=== PATIENT | female | born 1970 | race Hispanic/Latino ===

== ENCOUNTER 2017-11-03 07:27 | Emergency (ER) | payer OTHER, BC ==
[~2017-11-03] VITALS: Ht 167.6 cm; Wt 81.6 kg
[2017-11-03] MEDS: KETOROLAC TROMETHAMINE 60 MG/2 ML VIAL IM ONE (07:55)
--- NOTE | 2017-11-03 08:59 | Diagnostic Imaging Report ---
PROCEDURE:X-RAY RIGHT SHOULDER, COMPLETE COMPARISON:None. INDICATIONS:FALL FINDINGS: There are no fractures, dislocations, lytic or blastic lesions. The bones are well-mineralized. The soft-tissues are unremarkable. CONCLUSION: Normal right shoulder radiograph. Cesar Lopez D.O. Dictated by: Cesar Lopez D.O. on 11/03/2017 at 9:06 Electronically approved by: Cesar Lopez D.O. on 11/03/2017 at 9:06
--- NOTE | 2017-11-03 09:02 | Diagnostic Imaging Report ---
PROCEDURE:X-RAY RIGHT KNEE, THREE OR MORE VIEWS COMPARISON:None. INDICATIONS:FALL FINDINGS: The bones are well-mineralized. There are no fractures, subluxations, lytic or blastic lesions. Artifactual densities are noted within the soft tissues of the proximal medial calf not substantiated as persistent on all images. There is no evidence of a joint effusion. CONCLUSION: No acute bony abnormality. Cesar Lopez D.O. Dictated by: Cesar Lopez D.O. on 11/03/2017 at 9:09 Electronically approved by: Cesar Lopez D.O. on 11/03/2017 at 9:09
[2017-11-03] MEDS ORDERED: ULTRAM50 MG PO (09:24)
[2017-11-03] MEDS ORDERED: ONDANSETRON HCL 4 MG ORAL DISINTEGRATING TAB PO ONE (09:45)
[2017-11-03] MEDS ORDERED: HYDROCODONE/APAP 10MG-325MG TAB PO ONE (09:45)
== END 2017-11-03 09:56 | disposition home or self-care (01) ==
LOC: ER 07:27
DX: S80.01XA Contusion of right knee, initial encounter (principal); S83.411A Sprain of medial collateral ligament of right knee, initial encounter; S83.421A Sprain of lateral collateral ligament of right knee, initial encounter; W11.XXXA Fall on and from ladder, initial encounter
CPT/HCPCS: 73030; 73562; 99282; J1885

== ENCOUNTER 2019-08-07 12:31 | Emergency (ER) | payer OTHER ==
[~2019-08-07] VITALS: Ht 165.1 cm; Wt 83.9 kg
[~2019-08-07 12:31] MED LIST: ULTRAM50 MG PO
[2019-08-07] MEDS ORDERED: SODIUM CHLORIDE 0.9% 1000ML 1,000 ML IV STA (12:38)
[2019-08-07] MEDS ORDERED: ACETAMINOPHEN 325 MG TAB PO ONE (12:45)
[2019-08-07] MEDS ORDERED: CEFTRIAXONE SOD 1 GM VIAL ONE ×2 (13:04→15:29)
[2019-08-07] MEDS ORDERED: AZITHROMYCIN 500MG/NS 250 ML 250 ML IV ONE (13:10)
[2019-08-07 13:31] LABS: BASOPHILS % 0.4 % (0.0-1.0); EOSINOPHILS % 0.3 % (0.0-6.0); HEMATOCRIT 46.1 % (34.2-44.1); HEMOGLOBIN 14.9 g/dL (12.0-16.0); LYMPHOCYTES # (AUTO) 0.8 (1.0-3.2); LYMPHOCYTES % 10.9 % (18.0-39.1); MEAN CORPUSCULAR HEMOGLOBIN 29.7 pg (28-32); MEAN CORPUSCULAR HGB CONC 32.3 g/dL (31-35); MONOCYTES # (AUTO) 0.4 (0.2-0.8); NEUTROPHILS # (AUTO) 6.3 (2.1-6.9); NEUTROPHILS % 83.1 % (38.7-80.0); PLATELET COUNT 228 x10e3/uL (140-360); RED BLOOD COUNT 5.01 x10e6/uL (3.6-5.1); RED CELL DISTRIBUTION WIDTH 13.5 % (11.7-14.4)
--- NOTE | 2019-08-07 13:33 | NUR ---
PT STATES SHE CANT GIVE URINE SPECIMEN. PT GIVEN PO WATER AND IVF'S RUNNING. CUP AT BEDSIDE FOR URINE SAMPLE.
[2019-08-07 13:40] LABS: INR 0.79; PROTHROMBIN TIME 11.4 seconds (11.9-14.5)
[2019-08-07 13:45] LABS: ALANINE AMINOTRANSFERASE 21 IU/L (0-55); ALBUMIN 4.1 g/dL (3.5-5.0); ALKALINE PHOSPHATASE 93 IU/L (40-150); ANION GAP 15.7 mmol/L (8-16); BLOOD UREA NITROGEN 9 mg/dL (7-26); BUN/CREATININE RATIO 10 (6-25); CALCIUM 9.7 mg/dL (8.4-10.2); CARBON DIOXIDE 24 mmol/L (22-29); CHLORIDE 103 mmol/L (98-107); CREATINE KINASE 43 IU/L (29-168); CREATININE, SERUM 0.88 mg/dL (0.57-1.11); EST GLOMERULAR FILTRATION RATE > 60 ML/MIN (60-); GLUCOSE 105 mg/dL (74-118); MAGNESIUM 1.7 MG/DL (1.3-2.1); POTASSIUM 3.7 mmol/L (3.5-5.1); SODIUM 139 mmol/L (136-145)
[2019-08-07] MEDS ORDERED: CEFTRIAXONE SOD 2 GM/NS 100 ML 100 ML IV ONE (14:00)
--- NOTE | 2019-08-07 15:29 | Emergency Department Note ---
History of Present Illnes History of Present Illness Chief Complaint: COVID PUI History of Present Illness This is a 49 year old female HERE FOR COUGH, CONGESTION, CHILLS, MUSCLE ACHES THAT WORSENED YESTERDAY. REPORTS THAT SHE HAS SEASONAL ALLERGIES. DAUGHTER WAS COVID POSITIVE LAST WEEK AND THEY HAD DINNER TOGETHER. 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 Any updates have been documented here. Past Medical History Recent Fever: No Clinical Suspicion of Infectio: No New/Unexplained Change in Ment: No Past Medical History: None Other Medical History: SEASONAL ALLERGIES Past Surgical History: Other Surgery: KNEE SURGERIES ROTOR CUFF REPAIR Social History Smoking Cessation: Former smoker Counseling Performed: No Alcohol Use: Occasional TB Exposure/Symptoms: No Physically hurt or threatened: No Other Last Tetanus: UNK Last Flu: N Last Pneumovax: N Review of Systems Review of Systems Constitutional: Reports as per HPI EENTM: Reports no symptoms Cardiovascular: Reports no symptoms Respiratory: Reports no symptoms Gastrointestinal: Reports no symptoms Genitourinary: Reports no symptoms Musculoskeletal: Reports no symptoms Integumentary: Reports no symptoms Neurological: Reports no symptoms Psychological: Reports no symptoms Endocrine: Reports no symptoms Hematological/Lymphatic: Reports no symptoms Physical Exam Related Data Allergies: Coded Allergies: hydrocodone (Verified Allergy, Unknown, itching, hives, n/v headaches, 11/03/17) morphine (Verified Allergy, Unknown, itching hives, n/v, 11/03/17) Triage Vital Signs Vital Signs Date Time Temp Pulse Resp B/P (MAP) Pulse Ox O2 Delivery O2 Flow Rate FiO2 08/07/19 12:32 102.0 103 18 118/76 99 Vital signs reviewed: Yes Physical Exam CONSTITUTIONAL Constitutional: Present well-developed, Present well-nourished HENT HENT: Present normocephalic, Present atraumatic, Present oropharynx clear/moist, Present nose normal HENT L/R: Present left ext ear normal, Present right ext ear normal EYES Eyes: Reports PERRL, Reports conjunctivae normal NECK Neck: Present ROM normal PULMONARY Pulmonary: Present effort normal, Present breath sounds normal CARDIOVASCULAR Cardiovascular: Present regular rhythm, Present heart sounds normal, Present capillary refill normal, Present normal rate GASTROINTESTINAL Abdominal: Present soft, Present nontender, Present bowel sounds normal GENITOURINARY Genitourinary: Present exam deferred SKIN Skin: Present warm, Present dry MUSCULOSKELETAL Musculoskeletal: Present ROM normal NEUROLOGICAL Neurological: Present alert, Present oriented x 3, Present no gross motor or sensory deficits PSYCHOLOGICAL Psychological: Present mood/affect normal, Present judgement normal Results Laboratory Result Diagram: 08/07/19 1145 08/07/19 1145 Laboratory Laboratory Tests Test 08/07/19 13:41 08/07/19 11:45 White Blood Count 7.60 x10e3/uL (4.8-10.8) Red Blood Count 5.01 x10e6/uL (3.6-5.1) Hemoglobin 14.9 g/dL (12.0-16.0) Hematocrit 46.1 % (34.2-44.1) Mean Corpuscular Volume 92.0 fL (81-99) Mean Corpuscular Hemoglobin 29.7 pg (28-32) Mean Corpuscular Hemoglobin Concent 32.3 g/dL (31-35) Red Cell Distribution Width 13.5 % (11.7-14.4) Platelet Count 228 x10e3/uL (140-360) Neutrophils (%) (Auto) 83.1 % (38.7-80.0) Lymphocytes (%) (Auto) 10.9 % (18.0-39.1) Monocytes (%) (Auto) 5.0 % (4.4-11.3) Eosinophils (%) (Auto) 0.3 % (0.0-6.0) Basophils (%) (Auto) 0.4 % (0.0-1.0) Neutrophils # (Auto) 6.3 (2.1-6.9) Lymphocytes # (Auto) 0.8 (1.0-3.2) Monocytes # (Auto) 0.4 (0.2-0.8) Eosinophils # (Auto) 0.0 (0.0-0.4) Basophils # (Auto) 0.0 (0.0-0.1) Absolute Immature Granulocyte (auto 0.02 x10e3/uL (0-0.1) Prothrombin Time 11.4 seconds (11.9-14.5) Prothromb Time International Ratio 0.79 Activated Partial Thromboplast Time 27.0 seconds (23.8-35.5) Sodium Level 139 mmol/L (136-145) Potassium Level 3.7 mmol/L (3.5-5.1) Chloride Level 103 mmol/L (98-107) Carbon Dioxide Level 24 mmol/L (22-29) Anion Gap 15.7 mmol/L (8-16) Blood Urea Nitrogen 9 mg/dL (7-26) Creatinine 0.88 mg/dL (0.57-1.11) Estimat Glomerular Filtration Rate > 60 ML/MIN (60-) BUN/Creatinine Ratio 10 (6-25) Glucose Level 105 mg/dL (74-118) Lactic Acid Level 1.2 mmol/L (0.5-2.0) Calcium Level 9.7 mg/dL (8.4-10.2) Magnesium Level 1.7 MG/DL (1.3-2.1) Total Bilirubin 0.3 mg/dL (0.2-1.2) Aspartate Amino Transf (AST/SGOT) 20 IU/L (5-34) Alanine Aminotransferase (ALT/SGPT) 21 IU/L (0-55) Alkaline Phosphatase 93 IU/L (40-150) Creatine Kinase 43 IU/L (29-168) Creatine Kinase MB 0.40 ng/mL (0-5.0) Troponin I < 0.001 ng/mL (0-0.300) Total Protein 8.1 g/dL (6.5-8.1) Albumin 4.1 g/dL (3.5-5.0) Globulin 4.0 g/dL (2.3-3.5) Albumin/Globulin Ratio 1.0 (0.8-2.0) Lab results reviewed: Yes Imaging Imaging results reviewed: Yes Impressions Procedure: [id number] DX/CHEST SINGLE (PORTABLE) Exam Date: 08/07/19 Exam Time: 1420 REPORT STATUS: Signed EXAMINATION: CHEST SINGLE (PORTABLE) INDICATION: Cough COMPARISON: None FINDINGS: LINES/TUBES:None LUNGS:The lungs are moderately inflated. Left basilar opacities. PLEURA:No pleural effusion or pneumothorax. MEDIASTINUM:The cardiomediastinal silhouette appears normal in size and shape. BONES/SOFT TISSUES:No acute osseous injury. ABDOMEN:No free air under the diaphragm. IMPRESSION: Left basilar opacities, compatible with pneumonia in the proper clinical setting. Signed by: Sage Saldivar MD on 08/07/2019 3:56 PM Assessment & Plan Medical Decision Making MDM CBC, CHEM, BLOOD CX'S, COVID SWAB, CXR - R/O PNEUMONIA, COVID19, ELECTROLYTE ABNL, RENAL INSUFF Reassessment Reassessment O2 SAT REMAINS GOOD EVEN WHEN MARCHING IN PLACE FOR 1 MIN - REMAINED 98% ON RA SELF-QUARANTINE, PRONING, F/U PCP CALL TOMORROW, [facility] Assessment & Plan Final Impression: (1) Pneumonia due to COVID-19 virus Depart Disposition: HOME, SELF-CARE Last Vital Signs Date Time Temp Pulse Resp B/P (MAP) Pulse Ox O2 Delivery O2 Flow Rate FiO2 08/07/19 14:25 99.9 95 08/07/19 13:38 18 99 Home Meds Active Scripts Tramadol Hcl (ULTRAM) 50 Mg Tablet, 50 MG PO Q6H PRN for PAIN, #10 TAB Prov:CHRIS HOLMAN, DO 11/03/17 Medications in the ED Sodium Chloride 1,000 ml @ 0 mls/hr Q0M STAT IV Last administered on 08/07/19at 13:40; Admin Dose 1,000 MLS/HR; Start 08/07/19 at 12:38; Stop 08/07/19 at 12:48; Status DC Ceftriaxone Sodium 100 ml @ 100 mls/hr NOW ONCE IV Last administered on 08/07/19at 13:41; Admin Dose 100 MLS/HR; Start 08/07/19 at 14:00; Stop 08/07/19 at 14:59; Status DC Azithromycin 250 ml @ 250 mls/hr NOW ONCE IV Last administered on 08/07/19at 15:21; Admin Dose 250 MLS/HR; Start 08/07/19 at 13:10; Stop 08/07/19 at 14:09; Status DC Acetaminophen 975 mg ONCE ONCE PO Last administered on 08/07/19at 13:40; Admin Dose 975 MG; Start 08/07/19 at 12:45; Stop 08/07/19 at 13:07; Status DC Ceftriaxone Sodium 1 gm STK-MED ONCE .ROUTE ; Start 08/07/19 at 13:04; Stop 08/07/19 at 12:58; Status DC Ceftriaxone Sodium 1 gm STK-MED ONCE .ROUTE ; Start 08/07/19 at 15:29; Stop 08/07/19 at 15:23; Status DC DARIUS WADE MD Aug 07, 2019 15:29
--- NOTE | 2019-08-07 16:00 | Diagnostic Imaging Report ---
EXAMINATION: CHEST SINGLE (PORTABLE) INDICATION: Cough COMPARISON: None FINDINGS: LINES/TUBES:None LUNGS:The lungs are moderately inflated. Left basilar opacities. PLEURA:No pleural effusion or pneumothorax. MEDIASTINUM:The cardiomediastinal silhouette appears normal in size and shape. BONES/SOFT TISSUES:No acute osseous injury. ABDOMEN:No free air under the diaphragm. IMPRESSION: Left basilar opacities, compatible with pneumonia in the proper clinical setting. Signed by: Sage Saldivar MD on 08/07/2019 3:56 PM
[2019-08-07 17:31] VITALS: BP 129/81
== END 2019-08-07 17:42 | disposition home or self-care (01) ==
LOC: ER 12:31
DX: R50.9 Fever, unspecified (principal); R05 Cough; U07.1 COVID-19; J12.89 Other viral pneumonia
CPT/HCPCS: 36415; 71045; 80053; 82550; 82553; 83605; 83735; 84484; 85025; 85610; 85730; 87040; 87635; 99284; J0456; J0696 ×2; J7030